=== PATIENT | male | born 1945 | race Caucasian/White ===

== ENCOUNTER 2022-01-13 16:47 | Inpatient (IN) ==
[2022-01-13] MEDS ORDERED: Dextrose Gel 15 GM/37.5 ML TUBE PO PRN ×2 (17:04)
[2022-01-13] MEDS ORDERED: *HR* Dextrose 50 % in Water (Syg) 50 ML SYRINGE IVP PRN (17:04)
[2022-01-13] MEDS ORDERED: D5% in Water 1,000 ML IVC PRN (17:04)
[2022-01-13] MEDS ORDERED: Warfarin perPT PO PRN (18:00)
[2022-01-14] MEDS: Insulin LISPRO 300 UNITS/3 ML VIAL SUBQ SCH ×5 (03:47→20:37)
[2022-01-14 07:56] LABS: Basophils % 0.5 %; Eosinophils # 0.3 K/mcL (0.0-0.6); Eosinophils % 4.6 %; Hematocrit 24.3 % (37.5-50.1); Hemoglobin 7.8 g/dL (12.9-16.9); Immature Granulocytes % 0.4 % (0-4); Lymphocytes # 0.6 K/mcL (0.6-4.6); Mean Corpuscular HGB Conc 32.1 g/dL (31.6-35.5); Mean Corpuscular Hemoglobin 29.3 pg (28.0-33.3); Mean Corpuscular Volume 91.4 fL (83.0-100.0); Monocytes # 0.5 K/mcL (0.0-1.3); Monocytes % 8.4 %; Neutrophils # 4.2 K/mcL (1.6-8.9); Platelet Count 151 K/mcL (140-400); Red Blood Count 2.66 M/mcL (4.19-5.50); Red Cell Distribution Width 19.1 % (11.5-14.5); Segmented Neutrophils % 76.1 %; White Blood Count 5.5 K/mcL (4.3-11.1)
[2022-01-14 08:17] LABS: Calcium 9.7 mg/dL (8.6-10.3); Potassium 3.6 mEq/L (3.5-5.1)
[2022-01-14] MEDS ORDERED: NON-FORMULARY MEDICATION 1 EACH EACH (Vit C/E/Zn/Coppr/Lutein/Zeaxan [Preservision Areds 2 PO SCH (09:00)
[2022-01-14] MEDS ORDERED: Furosemide 40 MG TABLET PO SCH (09:00)
[2022-01-14] MEDS: Cyanocobalamin (B-12) 1,000 MCG TABLET PO SCH (09:14)
[2022-01-14] MEDS: carvediloL 25 MG TABLET PO SCH ×2 (09:14→17:16)
[2022-01-14] MEDS: Aspirin Enteric Coated 81 MG Tablet PO SCH (09:14)
[2022-01-14] MEDS: Isosorbide MONOnitrate (24 HR) 30 MG TAB.ER.24H PO SCH (09:15)
[2022-01-14] MEDS: amLODIPine 5 MG TABLET PO SCH (09:15)
[2022-01-14] MEDS: Multivit/Ca/Min/Fe/FA 1 TAB TABLET PO SCH (09:16)
[2022-01-14 13:40] LABS: INR 2.7; Prothrombin Time 29.4 Seconds (9.4-12.1)
[2022-01-14] MEDS ORDERED: *HR* Warfarin 2 MG TABLET PO ONE (18:00)
[2022-01-14] MEDS: PARoxetine 10 MG TABLET PO SCH (20:37)
[2022-01-15] MEDS: Furosemide 40 MG TABLET PO SCH ×3 (00:30→17:27)
[2022-01-15 08:29] LABS: Calcium 9.4 mg/dL (8.6-10.3); Potassium 3.5 mEq/L (3.5-5.1)
[2022-01-15] MEDS: Insulin LISPRO 300 UNITS/3 ML VIAL SUBQ SCH ×4 (08:52→21:07)
[2022-01-15] MEDS: Aspirin Enteric Coated 81 MG Tablet PO SCH (08:54)
[2022-01-15] MEDS: Isosorbide MONOnitrate (24 HR) 30 MG TAB.ER.24H PO SCH (08:54)
[2022-01-15] MEDS: amLODIPine 5 MG TABLET PO SCH (08:55)
[2022-01-15] MEDS: cephALEXin 500 MG CAPSULE PO SCH ×2 (08:55→21:11)
[2022-01-15] MEDS: Multivit/Ca/Min/Fe/FA 1 TAB TABLET PO SCH (08:55)
[2022-01-15] MEDS: Cyanocobalamin (B-12) 1,000 MCG TABLET PO SCH (08:55)
[2022-01-15] MEDS: carvediloL 25 MG TABLET PO SCH ×2 (08:56→17:28)
[2022-01-15] MEDS ORDERED: cephALEXin 500 MG CAPSULE PO SCH (09:00)
[2022-01-15 09:54] LABS: INR 2.4; Prothrombin Time 26.6 Seconds (9.4-12.1)
[2022-01-15] MEDS: *HR* Warfarin 3 MG TABLET PO ONE (17:28)
[2022-01-15] MEDS: PARoxetine 10 MG TABLET PO SCH (21:11)
[2022-01-16] MEDS: Insulin LISPRO 300 UNITS/3 ML VIAL SUBQ SCH ×4 (08:48→21:00)
[2022-01-16] MEDS: Aspirin Enteric Coated 81 MG Tablet PO SCH (09:00)
[2022-01-16] MEDS: amLODIPine 5 MG TABLET PO SCH (09:00)
[2022-01-16] MEDS: cephALEXin 500 MG CAPSULE PO SCH ×2 (09:01→21:52)
[2022-01-16] MEDS: Cyanocobalamin (B-12) 1,000 MCG TABLET PO SCH (09:01)
[2022-01-16] MEDS: Multivit/Ca/Min/Fe/FA 1 TAB TABLET PO SCH (09:01)
[2022-01-16] MEDS: carvediloL 25 MG TABLET PO SCH ×2 (09:02→17:20)
[2022-01-16] MEDS: Isosorbide MONOnitrate (24 HR) 30 MG TAB.ER.24H PO SCH (09:02)
[2022-01-16] MEDS: Furosemide 40 MG TABLET PO SCH ×2 (09:02→17:21)
[2022-01-16 09:20] LABS: INR 2.2
[2022-01-16] MEDS ORDERED: *HR* Warfarin 0.5 MG TABLET PO ONE (18:00)
[2022-01-16] MEDS ORDERED: *HR* Warfarin 3 MG TABLET PO ONE (18:00)
[2022-01-16] MEDS: PARoxetine 10 MG TABLET PO SCH (21:53)
[2022-01-16] MEDS: *HR* Warfarin 3 MG TABLET PO ONE (21:55)
[2022-01-17 07:15] LABS: INR 2.1; Prothrombin Time 23.7 Seconds (9.4-12.1)
[2022-01-17] MEDS: Insulin LISPRO 300 UNITS/3 ML VIAL SUBQ SCH ×4 (08:33→20:35)
[2022-01-17] MEDS: cephALEXin 500 MG CAPSULE PO SCH ×2 (08:47→20:24)
[2022-01-17] MEDS: carvediloL 25 MG TABLET PO SCH ×2 (08:47→17:08)
[2022-01-17] MEDS: Multivit/Ca/Min/Fe/FA 1 TAB TABLET PO SCH (08:47)
[2022-01-17] MEDS: Isosorbide MONOnitrate (24 HR) 30 MG TAB.ER.24H PO SCH (08:47)
[2022-01-17] MEDS: Furosemide 40 MG TABLET PO SCH ×2 (08:47→17:08)
[2022-01-17] MEDS: amLODIPine 5 MG TABLET PO SCH (08:47)
[2022-01-17] MEDS: Cyanocobalamin (B-12) 1,000 MCG TABLET PO SCH (08:47)
[2022-01-17] MEDS: Aspirin Enteric Coated 81 MG Tablet PO SCH (08:48)
[2022-01-17] MEDS ORDERED: *HR* Warfarin 2 MG TABLET PO ONE (18:00)
[2022-01-17] MEDS: PARoxetine 10 MG TABLET PO SCH (20:24)
[2022-01-18 07:10] LABS: Basophils # 0.1 K/mcL (0.0-0.2); Basophils % 1.1 %; Eosinophils # 0.3 K/mcL (0.0-0.6); Eosinophils % 6.1 %; Hemoglobin 7.1 g/dL (12.9-16.9); Immature Granulocytes % 0.2 % (0-4); Lymphocytes # 0.6 K/mcL (0.6-4.6); Lymphocytes % 13.3 %; Mean Corpuscular HGB Conc 32.3 g/dL (31.6-35.5); Mean Corpuscular Volume 92.8 fL (83.0-100.0); Mean Platelet Volume 11.8 fL (9.4-12.4); Monocytes # 0.5 K/mcL (0.0-1.3); Neutrophils # 3.3 K/mcL (1.6-8.9); Platelet Count 151 K/mcL (140-400); Red Blood Count 2.37 M/mcL (4.19-5.50); Red Cell Distribution Width 19.7 % (11.5-14.5); Segmented Neutrophils % 69.3 %; White Blood Count 4.7 K/mcL (4.3-11.1)
[2022-01-18 07:28] LABS: Calcium 9.1 mg/dL (8.6-10.3); Potassium 3.8 mEq/L (3.5-5.1)
[2022-01-18 07:48] LABS: INR 2.2; Prothrombin Time 23.9 Seconds (9.4-12.1)
[2022-01-18] MEDS: Aspirin Enteric Coated 81 MG Tablet PO SCH (08:20)
[2022-01-18] MEDS: Isosorbide MONOnitrate (24 HR) 30 MG TAB.ER.24H PO SCH (08:20)
[2022-01-18] MEDS: Cyanocobalamin (B-12) 1,000 MCG TABLET PO SCH (08:20)
[2022-01-18] MEDS: Multivit/Ca/Min/Fe/FA 1 TAB TABLET PO SCH (08:20)
[2022-01-18] MEDS: carvediloL 25 MG TABLET PO SCH ×2 (08:21→16:32)
[2022-01-18] MEDS: cephALEXin 500 MG CAPSULE PO SCH ×2 (08:21→20:10)
[2022-01-18] MEDS: amLODIPine 5 MG TABLET PO SCH (08:21)
[2022-01-18] MEDS: Insulin LISPRO 300 UNITS/3 ML VIAL SUBQ SCH ×4 (08:27→22:45)
[2022-01-18] MEDS ORDERED: 0.9 % Sodium Chloride 250 ML IVC SCH (08:30)
[2022-01-18] MEDS ORDERED: Furosemide 40 MG TABLET PO SCH (09:00)
[2022-01-18 15:47] LABS: Hematocrit 25.2 % (37.5-50.1); Hemoglobin 8.1 g/dL (12.9-16.9); Mean Corpuscular HGB Conc 32.1 g/dL (31.6-35.5); Mean Corpuscular Hemoglobin 29.8 pg (28.0-33.3); Mean Corpuscular Volume 92.6 fL (83.0-100.0); Mean Platelet Volume 11.1 fL (9.4-12.4); Platelet Count 146 K/mcL (140-400); Red Blood Count 2.72 M/mcL (4.19-5.50); Red Cell Distribution Width 19.4 % (11.5-14.5); White Blood Count 4.1 K/mcL (4.3-11.1)
[2022-01-18 16:05] LABS: Calcium 9.1 mg/dL (8.6-10.3); Potassium 3.7 mEq/L (3.5-5.1)
[2022-01-18] MEDS: PARoxetine 10 MG TABLET PO SCH (20:10)
[2022-01-19 08:33] LABS: Basophils % 0.7 %; Eosinophils # 0.2 K/mcL (0.0-0.6); Eosinophils % 5.9 %; Hematocrit 27.2 % (37.5-50.1); Hemoglobin 8.6 g/dL (12.9-16.9); Immature Granulocytes % 0.2 % (0-4); Lymphocytes # 0.6 K/mcL (0.6-4.6); Lymphocytes % 15.3 %; Mean Corpuscular HGB Conc 31.6 g/dL (31.6-35.5); Mean Corpuscular Hemoglobin 29.3 pg (28.0-33.3); Mean Corpuscular Volume 92.5 fL (83.0-100.0); Monocytes # 0.5 K/mcL (0.0-1.3); Monocytes % 12.3 %; Neutrophils # 2.7 K/mcL (1.6-8.9); Platelet Count 150 K/mcL (140-400); Red Blood Count 2.94 M/mcL (4.19-5.50); Red Cell Distribution Width 19.4 % (11.5-14.5); Segmented Neutrophils % 65.6 %; White Blood Count 4.1 K/mcL (4.3-11.1)
[2022-01-19] MEDS: Insulin LISPRO 300 UNITS/3 ML VIAL SUBQ SCH ×4 (08:35→20:28)
[2022-01-19] MEDS: Isosorbide MONOnitrate (24 HR) 30 MG TAB.ER.24H PO SCH (08:38)
[2022-01-19] MEDS: carvediloL 25 MG TABLET PO SCH ×2 (08:38→16:43)
[2022-01-19] MEDS: Multivit/Ca/Min/Fe/FA 1 TAB TABLET PO SCH (08:38)
[2022-01-19] MEDS: cephALEXin 500 MG CAPSULE PO SCH ×2 (08:38→20:28)
[2022-01-19] MEDS: Aspirin Enteric Coated 81 MG Tablet PO SCH (08:38)
[2022-01-19] MEDS: amLODIPine 5 MG TABLET PO SCH (08:38)
[2022-01-19] MEDS: Cyanocobalamin (B-12) 1,000 MCG TABLET PO SCH (08:38)
[2022-01-19 09:01] LABS: Calcium 9.3 mg/dL (8.6-10.3); Potassium 3.5 mEq/L (3.5-5.1)
[2022-01-19 10:08] LABS: INR 2.4; Prothrombin Time 26.4 Seconds (9.4-12.1)
[2022-01-19] MEDS ORDERED: Acetaminophen 325 MG TABLET PO PRN (10:45)
[2022-01-19 15:03] LABS: Basophils % 0.9 %; Eosinophils # 0.2 K/mcL (0.0-0.6); Eosinophils % 5.6 %; Hematocrit 24.3 % (37.5-50.1); Hemoglobin 7.7 g/dL (12.9-16.9); Immature Granulocytes % 0.2 % (0-4); Lymphocytes # 0.5 K/mcL (0.6-4.6); Lymphocytes % 10.9 %; Mean Corpuscular HGB Conc 31.7 g/dL (31.6-35.5); Mean Corpuscular Hemoglobin 29.3 pg (28.0-33.3); Mean Corpuscular Volume 92.4 fL (83.0-100.0); Monocytes # 0.5 K/mcL (0.0-1.3); Monocytes % 12.5 %; Platelet Count 146 K/mcL (140-400); Red Blood Count 2.63 M/mcL (4.19-5.50); Red Cell Distribution Width 19.3 % (11.5-14.5); Segmented Neutrophils % 69.9 %; White Blood Count 4.3 K/mcL (4.3-11.1)
[2022-01-19 15:27] LABS: Calcium 8.9 mg/dL (8.6-10.3); Potassium 3.6 mEq/L (3.5-5.1)
[2022-01-19] MEDS: PARoxetine 10 MG TABLET PO SCH (20:28)
[2022-01-19 21:39] VITALS: RESP 16
[2022-01-19 23:40] VITALS: BP 120/73; PULSE 63; TEMP 98.5; O2SAT 96
== END 2022-01-20 00:22 | disposition short-term general hospital (02) ==
LOC: INPPIK 01-14 01:26
PROVIDERS: ADMIT Family Medicine; ATTEND Family Medicine

== ENCOUNTER 2022-01-27 11:53 | Inpatient (IN) ==
[2022-02-01] MEDS ORDERED: *HR* Dextrose 50 % in Water (Syg) 50 ML SYRINGE IVP PRN (14:43)
[2022-02-01] MEDS ORDERED: Dextrose 4 GM Chewable Tablets PO PRN ×2 (14:43)
[2022-02-01] MEDS ORDERED: Warfarin perPT PO PRN (18:00)
[2022-02-01] MEDS ORDERED: D5% in Water 1,000 ML IVC PRN (21:42)
[2022-02-01] MEDS ORDERED: Ondansetron ODT 4 MG TAB.RAPDIS SL PRN (21:42)
[2022-02-01] MEDS ORDERED: Acetaminophen 325 MG TABLET PO PRN (21:43)
[2022-02-01] MEDS: Insulin LISPRO 300 UNITS/3 ML VIAL SUBQ SCH ×2 (21:44→22:34)
[2022-02-01] MEDS: hydrALAZINE 25 MG TABLET PO SCH (23:36)
[2022-02-01] MEDS: PARoxetine 10 MG TABLET PO SCH (23:36)
[2022-02-01] MEDS: Melatonin 3 MG TABLET PO PRN (23:36)
[2022-02-02] MEDS: hydrALAZINE 25 MG TABLET PO SCH ×3 (05:52→21:27)
[2022-02-02 06:29] LABS: Basophils % 0.8 %; Eosinophils # 0.2 K/mcL (0.0-0.6); Eosinophils % 5.8 %; Hematocrit 26.7 % (37.5-50.1); Hemoglobin 8.2 g/dL (12.9-16.9); Immature Granulocytes % 0.3 % (0-4); Lymphocytes # 0.6 K/mcL (0.6-4.6); Lymphocytes % 16.2 %; Mean Corpuscular HGB Conc 30.7 g/dL (31.6-35.5); Mean Corpuscular Hemoglobin 28.6 pg (28.0-33.3); Mean Platelet Volume 11.2 fL (9.4-12.4); Monocytes # 0.5 K/mcL (0.0-1.3); Monocytes % 12.8 %; Platelet Count 145 K/mcL (140-400); Red Blood Count 2.87 M/mcL (4.19-5.50); Red Cell Distribution Width 17.6 % (11.5-14.5); Segmented Neutrophils % 64.1 %; White Blood Count 3.8 K/mcL (4.3-11.1)
[2022-02-02 06:41] LABS: Neutrophils # 2.4 K/mcL (1.6-8.9)
[2022-02-02 06:44] LABS: INR 1.7; Prothrombin Time 18.9 Seconds (9.4-12.1)
[2022-02-02 06:52] LABS: Calcium 9.5 mg/dL (8.6-10.3); Potassium 3.8 mEq/L (3.5-5.1)
[2022-02-02] MEDS: Insulin LISPRO 300 UNITS/3 ML VIAL SUBQ SCH ×4 (08:13→21:28)
[2022-02-02] MEDS: Aspirin Enteric Coated 81 MG Tablet PO SCH (10:55)
[2022-02-02] MEDS: carvediloL 25 MG TABLET PO SCH ×2 (10:55→16:46)
[2022-02-02] MEDS: Multivit/Ca/Min/Fe/FA 1 TAB TABLET PO SCH (10:55)
[2022-02-02] MEDS: (Preservision Areds 2) PO SCH (10:55)
[2022-02-02] MEDS: Furosemide 40 MG TABLET PO SCH (10:55)
[2022-02-02] MEDS: Cyanocobalamin (B-12) 1,000 MCG TABLET PO SCH (10:55)
[2022-02-02] MEDS: Isosorbide MONOnitrate (24 HR) 30 MG TAB.ER.24H PO SCH (10:55)
[2022-02-02] MEDS: Magnesium Oxide 400 MG TABLET PO SCH (10:55)
[2022-02-02] MEDS ORDERED: *HR* Warfarin 2 MG TABLET PO ONE (18:00)
[2022-02-02] MEDS: PARoxetine 10 MG TABLET PO SCH (21:28)
[2022-02-03] MEDS: hydrALAZINE 25 MG TABLET PO SCH ×3 (05:00→21:32)
[2022-02-03 06:26] LABS: INR 1.7; Prothrombin Time 18.7 Seconds (9.4-12.1)
[2022-02-03] MEDS: Insulin LISPRO 300 UNITS/3 ML VIAL SUBQ SCH ×4 (09:40→21:25)
[2022-02-03] MEDS: Isosorbide MONOnitrate (24 HR) 30 MG TAB.ER.24H PO SCH (11:16)
[2022-02-03] MEDS: Magnesium Oxide 400 MG TABLET PO SCH (11:16)
[2022-02-03] MEDS: carvediloL 25 MG TABLET PO SCH ×2 (11:16→17:23)
[2022-02-03] MEDS: Furosemide 40 MG TABLET PO SCH (11:16)
[2022-02-03] MEDS: Cyanocobalamin (B-12) 1,000 MCG TABLET PO SCH (11:16)
[2022-02-03] MEDS: (Preservision Areds 2) PO SCH (11:17)
[2022-02-03] MEDS: Multivit/Ca/Min/Fe/FA 1 TAB TABLET PO SCH (11:17)
[2022-02-03] MEDS: Aspirin Enteric Coated 81 MG Tablet PO SCH (11:17)
[2022-02-03] MEDS ORDERED: *HR* Warfarin 2 MG TABLET PO ONE (18:00)
[2022-02-03] MEDS: PARoxetine 10 MG TABLET PO SCH (21:32)
[2022-02-03] MEDS: Melatonin 3 MG TABLET PO PRN (21:32)
[2022-02-04] MEDS: hydrALAZINE 25 MG TABLET PO SCH ×3 (04:49→20:57)
[2022-02-04] MEDS: Insulin LISPRO 300 UNITS/3 ML VIAL SUBQ SCH ×4 (07:30→20:44)
[2022-02-04] MEDS: (Preservision Areds 2) PO SCH (10:49)
[2022-02-04] MEDS: carvediloL 25 MG TABLET PO SCH ×2 (11:06→17:20)
[2022-02-04] MEDS: Aspirin Enteric Coated 81 MG Tablet PO SCH (11:06)
[2022-02-04] MEDS: Magnesium Oxide 400 MG TABLET PO SCH (11:07)
[2022-02-04] MEDS: Cyanocobalamin (B-12) 1,000 MCG TABLET PO SCH (11:07)
[2022-02-04] MEDS: Isosorbide MONOnitrate (24 HR) 30 MG TAB.ER.24H PO SCH (11:07)
[2022-02-04] MEDS: Furosemide 40 MG TABLET PO SCH (11:07)
[2022-02-04] MEDS: Multivit/Ca/Min/Fe/FA 1 TAB TABLET PO SCH (11:07)
[2022-02-04 11:37] LABS: INR 1.7; Prothrombin Time 18.5 Seconds (9.4-12.1)
[2022-02-04] MEDS ORDERED: *HR* Warfarin 2 MG TABLET PO ONE (18:00)
[2022-02-04] MEDS ORDERED: *HR* Warfarin 2.5 MG TABLET PO ONE (18:00)
[2022-02-04] MEDS: Melatonin 3 MG TABLET PO PRN (20:57)
[2022-02-04] MEDS: PARoxetine 10 MG TABLET PO SCH (20:57)
[2022-02-05] MEDS: hydrALAZINE 25 MG TABLET PO SCH ×4 (07:31→23:56)
[2022-02-05] MEDS: Insulin LISPRO 300 UNITS/3 ML VIAL SUBQ SCH ×4 (08:08→20:05)
[2022-02-05 08:27] LABS: INR 1.8; Prothrombin Time 19.7 Seconds (9.4-12.1)
[2022-02-05] MEDS: Furosemide 40 MG TABLET PO SCH (10:17)
[2022-02-05] MEDS: carvediloL 25 MG TABLET PO SCH ×2 (10:18→17:05)
[2022-02-05] MEDS: Multivit/Ca/Min/Fe/FA 1 TAB TABLET PO SCH (10:18)
[2022-02-05] MEDS: Cyanocobalamin (B-12) 1,000 MCG TABLET PO SCH (10:18)
[2022-02-05] MEDS: Magnesium Oxide 400 MG TABLET PO SCH (10:18)
[2022-02-05] MEDS: Aspirin Enteric Coated 81 MG Tablet PO SCH (10:18)
[2022-02-05] MEDS: Isosorbide MONOnitrate (24 HR) 30 MG TAB.ER.24H PO SCH (10:18)
[2022-02-05] MEDS: (Preservision Areds 2) PO SCH (10:19)
[2022-02-05] MEDS ORDERED: *HR* Warfarin 2.5 MG TABLET PO ONE (18:00)
[2022-02-05] MEDS ORDERED: *HR* Warfarin 2 MG TABLET PO ONE (18:00)
[2022-02-05] MEDS: PARoxetine 10 MG TABLET PO SCH (20:05)
[2022-02-05] MEDS: Melatonin 3 MG TABLET PO PRN (20:05)
[2022-02-06 08:02] LABS: Prothrombin Time 22.2 Seconds (9.4-12.1)
[2022-02-06] MEDS: Insulin LISPRO 300 UNITS/3 ML VIAL SUBQ SCH ×4 (08:17→19:50)
[2022-02-06] MEDS: hydrALAZINE 25 MG TABLET PO SCH ×3 (08:18→23:12)
[2022-02-06] MEDS: Cyanocobalamin (B-12) 1,000 MCG TABLET PO SCH (08:18)
[2022-02-06] MEDS: Aspirin Enteric Coated 81 MG Tablet PO SCH (08:18)
[2022-02-06] MEDS: Magnesium Oxide 400 MG TABLET PO SCH (08:18)
[2022-02-06] MEDS: Furosemide 40 MG TABLET PO SCH (08:18)
[2022-02-06] MEDS: Multivit/Ca/Min/Fe/FA 1 TAB TABLET PO SCH (08:18)
[2022-02-06] MEDS: Isosorbide MONOnitrate (24 HR) 30 MG TAB.ER.24H PO SCH (08:18)
[2022-02-06] MEDS: carvediloL 25 MG TABLET PO SCH ×2 (08:18→17:16)
[2022-02-06] MEDS: (Preservision Areds 2) PO SCH (08:20)
[2022-02-06 08:52] LABS: Hematocrit 25.1 % (37.5-50.1); Hemoglobin 7.7 g/dL (12.9-16.9); Mean Corpuscular HGB Conc 30.7 g/dL (31.6-35.5); Mean Corpuscular Hemoglobin 28.2 pg (28.0-33.3); Mean Corpuscular Volume 91.9 fL (83.0-100.0); Mean Platelet Volume 11.5 fL (9.4-12.4); Platelet Count 138 K/mcL (140-400); Red Blood Count 2.73 M/mcL (4.19-5.50); Red Cell Distribution Width 16.8 % (11.5-14.5); White Blood Count 5.3 K/mcL (4.3-11.1)
[2022-02-06] MEDS ORDERED: *HR* Warfarin 2 MG TABLET PO ONE (18:00)
[2022-02-06] MEDS: PARoxetine 10 MG TABLET PO SCH (19:54)
[2022-02-06] MEDS: Melatonin 3 MG TABLET PO PRN (23:12)
[2022-02-07] MEDS: Insulin LISPRO 300 UNITS/3 ML VIAL SUBQ SCH ×4 (10:18→20:12)
[2022-02-07] MEDS: hydrALAZINE 25 MG TABLET PO SCH ×2 (12:44→17:19)
[2022-02-07] MEDS: carvediloL 25 MG TABLET PO SCH ×2 (12:45→17:20)
[2022-02-07] MEDS: (Preservision Areds 2) PO SCH (12:58)
[2022-02-07] MEDS: Magnesium Oxide 400 MG TABLET PO SCH (13:01)
[2022-02-07] MEDS: Furosemide 40 MG TABLET PO SCH (13:01)
[2022-02-07] MEDS: Aspirin Enteric Coated 81 MG Tablet PO SCH (13:01)
[2022-02-07] MEDS: Multivit/Ca/Min/Fe/FA 1 TAB TABLET PO SCH (13:01)
[2022-02-07] MEDS: Isosorbide MONOnitrate (24 HR) 30 MG TAB.ER.24H PO SCH (13:01)
[2022-02-07] MEDS: Cyanocobalamin (B-12) 1,000 MCG TABLET PO SCH (13:02)
[2022-02-07 13:12] LABS: INR 2.2; Prothrombin Time 24.5 Seconds (9.4-12.1)
[2022-02-07] MEDS ORDERED: *HR* Warfarin 2 MG TABLET PO ONE (18:00)
[2022-02-07] MEDS: Melatonin 3 MG TABLET PO PRN (20:12)
[2022-02-07] MEDS: PARoxetine 10 MG TABLET PO SCH (20:12)
[2022-02-08] MEDS: hydrALAZINE 25 MG TABLET PO SCH ×3 (00:53→17:12)
[2022-02-08] MEDS: Insulin LISPRO 300 UNITS/3 ML VIAL SUBQ SCH ×4 (07:23→21:10)
[2022-02-08 07:56] LABS: INR 2.2; Prothrombin Time 24.1 Seconds (9.4-12.1)
[2022-02-08 08:07] LABS: Hematocrit 24.1 % (37.5-50.1); Hemoglobin 7.5 g/dL (12.9-16.9); Mean Corpuscular HGB Conc 31.1 g/dL (31.6-35.5); Mean Corpuscular Hemoglobin 28.7 pg (28.0-33.3); Mean Corpuscular Volume 92.3 fL (83.0-100.0); Mean Platelet Volume 11.5 fL (9.4-12.4); Platelet Count 156 K/mcL (140-400); Red Blood Count 2.61 M/mcL (4.19-5.50); Red Cell Distribution Width 16.8 % (11.5-14.5); White Blood Count 4.9 K/mcL (4.3-11.1)
[2022-02-08 08:21] LABS: Calcium 9.1 mg/dL (8.6-10.3); Potassium 4.5 mEq/L (3.5-5.1)
[2022-02-08] MEDS: Isosorbide MONOnitrate (24 HR) 30 MG TAB.ER.24H PO SCH (09:01)
[2022-02-08] MEDS: Multivit/Ca/Min/Fe/FA 1 TAB TABLET PO SCH (09:01)
[2022-02-08] MEDS: Magnesium Oxide 400 MG TABLET PO SCH (09:03)
[2022-02-08] MEDS: Aspirin Enteric Coated 81 MG Tablet PO SCH (09:03)
[2022-02-08] MEDS: Furosemide 40 MG TABLET PO SCH (09:03)
[2022-02-08] MEDS: carvediloL 25 MG TABLET PO SCH ×2 (09:03→17:12)
[2022-02-08] MEDS: Cyanocobalamin (B-12) 1,000 MCG TABLET PO SCH (09:04)
[2022-02-08] MEDS: (Preservision Areds 2) PO SCH (09:05)
[2022-02-08] MEDS ORDERED: *HR* Warfarin 2 MG TABLET PO ONE (18:00)
[2022-02-08] MEDS: Melatonin 3 MG TABLET PO PRN (21:09)
[2022-02-08] MEDS: PARoxetine 10 MG TABLET PO SCH (21:09)
[2022-02-09] MEDS: hydrALAZINE 25 MG TABLET PO SCH ×3 (01:24→17:01)
[2022-02-09] MEDS: Insulin LISPRO 300 UNITS/3 ML VIAL SUBQ SCH ×4 (10:15→19:39)
[2022-02-09 11:38] LABS: INR 2.1; Prothrombin Time 23.6 Seconds (9.4-12.1)
[2022-02-09] MEDS: carvediloL 25 MG TABLET PO SCH ×2 (11:40→17:01)
[2022-02-09] MEDS: Isosorbide MONOnitrate (24 HR) 30 MG TAB.ER.24H PO SCH (11:41)
[2022-02-09] MEDS: Multivit/Ca/Min/Fe/FA 1 TAB TABLET PO SCH (11:41)
[2022-02-09] MEDS: Magnesium Oxide 400 MG TABLET PO SCH (11:41)
[2022-02-09] MEDS: (Preservision Areds 2) PO SCH (11:41)
[2022-02-09] MEDS: Cyanocobalamin (B-12) 1,000 MCG TABLET PO SCH (11:41)
[2022-02-09] MEDS: Furosemide 40 MG TABLET PO SCH (11:42)
[2022-02-09] MEDS: Aspirin Enteric Coated 81 MG Tablet PO SCH (11:42)
[2022-02-09] MEDS: Ergocalciferol (VIT D2) 50,000 UNIT (1.25MG) CAP PO SCH (14:53)
[2022-02-09] MEDS ORDERED: *HR* Warfarin 2 MG TABLET PO ONE (18:00)
[2022-02-09] MEDS: Melatonin 3 MG TABLET PO PRN (19:39)
[2022-02-09] MEDS: PARoxetine 10 MG TABLET PO SCH (19:39)
[2022-02-10] MEDS: hydrALAZINE 25 MG TABLET PO SCH ×4 (01:45→23:39)
[2022-02-10 06:30] LABS: INR 2.3; Prothrombin Time 25.6 Seconds (9.4-12.1)
[2022-02-10] MEDS: Insulin LISPRO 300 UNITS/3 ML VIAL SUBQ SCH ×4 (08:57→19:34)
[2022-02-10] MEDS: Multivit/Ca/Min/Fe/FA 1 TAB TABLET PO SCH (09:02)
[2022-02-10] MEDS: Furosemide 40 MG TABLET PO SCH (09:02)
[2022-02-10] MEDS: Magnesium Oxide 400 MG TABLET PO SCH (09:03)
[2022-02-10] MEDS: Isosorbide MONOnitrate (24 HR) 30 MG TAB.ER.24H PO SCH (09:03)
[2022-02-10] MEDS: carvediloL 25 MG TABLET PO SCH ×2 (09:03→16:40)
[2022-02-10] MEDS: Aspirin Enteric Coated 81 MG Tablet PO SCH (09:03)
[2022-02-10] MEDS: (Preservision Areds 2) PO SCH (09:04)
[2022-02-10] MEDS: Cyanocobalamin (B-12) 1,000 MCG TABLET PO SCH (09:04)
[2022-02-10] MEDS ORDERED: *HR* Warfarin 2 MG TABLET PO ONE (18:00)
[2022-02-10] MEDS: PARoxetine 10 MG TABLET PO SCH (19:34)
[2022-02-10] MEDS: Melatonin 3 MG TABLET PO PRN (23:39)
[2022-02-11] MEDS: Insulin LISPRO 300 UNITS/3 ML VIAL SUBQ SCH ×4 (10:29→20:55)
[2022-02-11] MEDS: Isosorbide MONOnitrate (24 HR) 30 MG TAB.ER.24H PO SCH (10:42)
[2022-02-11] MEDS: hydrALAZINE 25 MG TABLET PO SCH ×2 (10:42→17:47)
[2022-02-11] MEDS: Multivit/Ca/Min/Fe/FA 1 TAB TABLET PO SCH (10:42)
[2022-02-11] MEDS: carvediloL 25 MG TABLET PO SCH ×2 (10:43→17:53)
[2022-02-11] MEDS: Furosemide 40 MG TABLET PO SCH (10:43)
[2022-02-11] MEDS: Cyanocobalamin (B-12) 1,000 MCG TABLET PO SCH (10:43)
[2022-02-11] MEDS: Magnesium Oxide 400 MG TABLET PO SCH (10:43)
[2022-02-11] MEDS: (Preservision Areds 2) PO SCH (10:44)
[2022-02-11] MEDS: Aspirin Enteric Coated 81 MG Tablet PO SCH (10:44)
[2022-02-11 11:30] LABS: INR 2.2; Prothrombin Time 24.9 Seconds (9.4-12.1)
[2022-02-11] MEDS ORDERED: *HR* Warfarin 2 MG TABLET PO ONE (18:00)
[2022-02-11] MEDS: PARoxetine 10 MG TABLET PO SCH (20:47)
[2022-02-11] MEDS: Melatonin 3 MG TABLET PO PRN (20:50)
[2022-02-12] MEDS: hydrALAZINE 25 MG TABLET PO SCH ×3 (00:20→17:06)
[2022-02-12 07:22] LABS: INR 2.6; Prothrombin Time 28.4 Seconds (9.4-12.1)
[2022-02-12] MEDS: Insulin LISPRO 300 UNITS/3 ML VIAL SUBQ SCH ×4 (07:31→20:14)
[2022-02-12] MEDS: carvediloL 25 MG TABLET PO SCH ×2 (07:32→17:05)
[2022-02-12] MEDS: Isosorbide MONOnitrate (24 HR) 30 MG TAB.ER.24H PO SCH (07:32)
[2022-02-12] MEDS: Aspirin Enteric Coated 81 MG Tablet PO SCH (07:32)
[2022-02-12] MEDS: Multivit/Ca/Min/Fe/FA 1 TAB TABLET PO SCH (07:32)
[2022-02-12] MEDS: Furosemide 40 MG TABLET PO SCH (07:32)
[2022-02-12] MEDS: Magnesium Oxide 400 MG TABLET PO SCH (07:32)
[2022-02-12] MEDS: Cyanocobalamin (B-12) 1,000 MCG TABLET PO SCH (07:32)
[2022-02-12] MEDS: (Preservision Areds 2) PO SCH (10:13)
[2022-02-12] MEDS ORDERED: *HR* Warfarin 2 MG TABLET PO ONE (18:00)
[2022-02-12] MEDS: PARoxetine 10 MG TABLET PO SCH (20:13)
[2022-02-12] MEDS: Melatonin 3 MG TABLET PO PRN (20:13)
[2022-02-13] MEDS: hydrALAZINE 25 MG TABLET PO SCH ×4 (00:01→23:55)
[2022-02-13 07:51] LABS: INR 2.4; Prothrombin Time 26.4 Seconds (9.4-12.1)
[2022-02-13 07:52] LABS: Calcium 9.1 mg/dL (8.6-10.3); Hematocrit 23.7 % (37.5-50.1); Hemoglobin 7.4 g/dL (12.9-16.9); Magnesium 1.9 mg/dL (1.6-2.6); Mean Corpuscular HGB Conc 31.2 g/dL (31.6-35.5); Mean Corpuscular Volume 92.9 fL (83.0-100.0); Mean Platelet Volume 11.5 fL (9.4-12.4); Platelet Count 137 K/mcL (140-400); Potassium 4.4 mEq/L (3.5-5.1); Red Blood Count 2.55 M/mcL (4.19-5.50); Red Cell Distribution Width 16.7 % (11.5-14.5); White Blood Count 5.2 K/mcL (4.3-11.1)
[2022-02-13] MEDS: Aspirin Enteric Coated 81 MG Tablet PO SCH (08:41)
[2022-02-13] MEDS: Insulin LISPRO 300 UNITS/3 ML VIAL SUBQ SCH ×4 (08:41→20:07)
[2022-02-13] MEDS: Cyanocobalamin (B-12) 1,000 MCG TABLET PO SCH (08:42)
[2022-02-13] MEDS: Multivit/Ca/Min/Fe/FA 1 TAB TABLET PO SCH (08:43)
[2022-02-13] MEDS: Isosorbide MONOnitrate (24 HR) 30 MG TAB.ER.24H PO SCH (08:43)
[2022-02-13] MEDS: Furosemide 40 MG TABLET PO SCH (08:43)
[2022-02-13] MEDS: Magnesium Oxide 400 MG TABLET PO SCH (08:44)
[2022-02-13] MEDS: carvediloL 25 MG TABLET PO SCH ×2 (08:44→16:52)
[2022-02-13] MEDS: (Preservision Areds 2) PO SCH (08:44)
[2022-02-13] MEDS ORDERED: *HR* Warfarin 2 MG TABLET PO ONE (18:00)
[2022-02-13] MEDS: PARoxetine 10 MG TABLET PO SCH (20:07)
[2022-02-13] MEDS: Melatonin 3 MG TABLET PO PRN (20:07)
[2022-02-14] MEDS: Insulin LISPRO 300 UNITS/3 ML VIAL SUBQ SCH ×4 (09:07→21:46)
[2022-02-14] MEDS: Multivit/Ca/Min/Fe/FA 1 TAB TABLET PO SCH (10:47)
[2022-02-14] MEDS: Aspirin Enteric Coated 81 MG Tablet PO SCH (10:47)
[2022-02-14] MEDS: hydrALAZINE 25 MG TABLET PO SCH ×2 (10:47→16:54)
[2022-02-14] MEDS: Cyanocobalamin (B-12) 1,000 MCG TABLET PO SCH (10:48)
[2022-02-14] MEDS: Isosorbide MONOnitrate (24 HR) 30 MG TAB.ER.24H PO SCH (10:48)
[2022-02-14] MEDS: (Preservision Areds 2) PO SCH (10:48)
[2022-02-14] MEDS: Furosemide 40 MG TABLET PO SCH (10:48)
[2022-02-14] MEDS: carvediloL 25 MG TABLET PO SCH ×2 (10:48→17:02)
[2022-02-14] MEDS: Magnesium Oxide 400 MG TABLET PO SCH (11:06)
[2022-02-14 11:41] LABS: INR 2.2; Prothrombin Time 24.3 Seconds (9.4-12.1)
[2022-02-14] MEDS ORDERED: *HR* Warfarin 2 MG TABLET PO ONE (18:00)
[2022-02-14] MEDS: PARoxetine 10 MG TABLET PO SCH (21:46)
[2022-02-14] MEDS: Melatonin 3 MG TABLET PO PRN (21:46)
[2022-02-15] MEDS: hydrALAZINE 25 MG TABLET PO SCH ×4 (00:49→22:58)
[2022-02-15] MEDS: Insulin LISPRO 300 UNITS/3 ML VIAL SUBQ SCH ×4 (07:31→22:16)
[2022-02-15 07:43] LABS: INR 2.2; Prothrombin Time 24.9 Seconds (9.4-12.1)
[2022-02-15] MEDS: Aspirin Enteric Coated 81 MG Tablet PO SCH (08:35)
[2022-02-15] MEDS: Isosorbide MONOnitrate (24 HR) 30 MG TAB.ER.24H PO SCH (08:36)
[2022-02-15] MEDS: Magnesium Oxide 400 MG TABLET PO SCH (08:36)
[2022-02-15] MEDS: Multivit/Ca/Min/Fe/FA 1 TAB TABLET PO SCH (08:36)
[2022-02-15] MEDS: (Preservision Areds 2) PO SCH (08:36)
[2022-02-15] MEDS: Cyanocobalamin (B-12) 1,000 MCG TABLET PO SCH (08:36)
[2022-02-15] MEDS: Furosemide 40 MG TABLET PO SCH (08:36)
[2022-02-15] MEDS: carvediloL 25 MG TABLET PO SCH ×2 (08:36→17:05)
[2022-02-15] MEDS: *HR* Warfarin 2 MG TABLET PO SCH (17:05)
[2022-02-15] MEDS: PARoxetine 10 MG TABLET PO SCH (22:58)
[2022-02-15] MEDS: Melatonin 3 MG TABLET PO PRN (22:58)
[2022-02-16] MEDS: Insulin LISPRO 300 UNITS/3 ML VIAL SUBQ SCH ×4 (08:28→22:31)
[2022-02-16] MEDS: carvediloL 25 MG TABLET PO SCH ×2 (11:41→16:29)
[2022-02-16] MEDS: hydrALAZINE 25 MG TABLET PO SCH ×2 (11:42→16:24)
[2022-02-16] MEDS: (Preservision Areds 2) PO SCH (11:42)
[2022-02-16] MEDS: Isosorbide MONOnitrate (24 HR) 30 MG TAB.ER.24H PO SCH (11:50)
[2022-02-16] MEDS: Furosemide 40 MG TABLET PO SCH (11:50)
[2022-02-16] MEDS: Cyanocobalamin (B-12) 1,000 MCG TABLET PO SCH (11:50)
[2022-02-16] MEDS: Aspirin Enteric Coated 81 MG Tablet PO SCH (11:50)
[2022-02-16] MEDS: Multivit/Ca/Min/Fe/FA 1 TAB TABLET PO SCH (11:50)
[2022-02-16] MEDS: Magnesium Oxide 400 MG TABLET PO SCH (11:50)
[2022-02-16 12:35] LABS: Hematocrit 28.2 % (37.5-50.1); Hemoglobin 8.8 g/dL (12.9-16.9); Mean Corpuscular HGB Conc 31.2 g/dL (31.6-35.5); Mean Corpuscular Hemoglobin 29.2 pg (28.0-33.3); Mean Corpuscular Volume 93.7 fL (83.0-100.0); Mean Platelet Volume 10.8 fL (9.4-12.4); Platelet Count 155 K/mcL (140-400); Red Blood Count 3.01 M/mcL (4.19-5.50); Red Cell Distribution Width 17.3 % (11.5-14.5); White Blood Count 5.1 K/mcL (4.3-11.1)
[2022-02-16 12:48] LABS: Calcium 9.3 mg/dL (8.6-10.3); Potassium 3.7 mEq/L (3.5-5.1)
[2022-02-16] MEDS: Ergocalciferol (VIT D2) 50,000 UNIT (1.25MG) CAP PO SCH (16:30)
[2022-02-16] MEDS: *HR* Warfarin 2 MG TABLET PO SCH (17:58)
[2022-02-16] MEDS: PARoxetine 10 MG TABLET PO SCH (21:37)
[2022-02-17] MEDS: hydrALAZINE 25 MG TABLET PO SCH ×4 (00:59→23:44)
[2022-02-17] MEDS: Insulin LISPRO 300 UNITS/3 ML VIAL SUBQ SCH ×4 (07:11→20:14)
[2022-02-17] MEDS: Aspirin Enteric Coated 81 MG Tablet PO SCH (07:46)
[2022-02-17] MEDS: Multivit/Ca/Min/Fe/FA 1 TAB TABLET PO SCH (07:46)
[2022-02-17] MEDS: Cyanocobalamin (B-12) 1,000 MCG TABLET PO SCH (07:47)
[2022-02-17] MEDS: Furosemide 40 MG TABLET PO SCH (07:47)
[2022-02-17] MEDS: Magnesium Oxide 400 MG TABLET PO SCH (07:47)
[2022-02-17] MEDS: Isosorbide MONOnitrate (24 HR) 30 MG TAB.ER.24H PO SCH (07:47)
[2022-02-17] MEDS: carvediloL 25 MG TABLET PO SCH ×2 (07:47→17:27)
[2022-02-17] MEDS: (Preservision Areds 2) PO SCH (07:47)
[2022-02-17] MEDS: *HR* Warfarin 2 MG TABLET PO SCH (17:28)
[2022-02-17] MEDS: PARoxetine 10 MG TABLET PO SCH (20:14)
[2022-02-18] MEDS: Insulin LISPRO 300 UNITS/3 ML VIAL SUBQ SCH ×4 (10:29→20:39)
[2022-02-18] MEDS: Multivit/Ca/Min/Fe/FA 1 TAB TABLET PO SCH (11:46)
[2022-02-18] MEDS: Aspirin Enteric Coated 81 MG Tablet PO SCH (11:46)
[2022-02-18] MEDS: Isosorbide MONOnitrate (24 HR) 30 MG TAB.ER.24H PO SCH (11:46)
[2022-02-18] MEDS: Magnesium Oxide 400 MG TABLET PO SCH (11:46)
[2022-02-18] MEDS: Furosemide 40 MG TABLET PO SCH (11:46)
[2022-02-18] MEDS: Cyanocobalamin (B-12) 1,000 MCG TABLET PO SCH (11:46)
[2022-02-18] MEDS: hydrALAZINE 25 MG TABLET PO SCH ×2 (11:47→17:26)
[2022-02-18] MEDS: carvediloL 25 MG TABLET PO SCH ×2 (11:47→17:25)
[2022-02-18] MEDS: (Preservision Areds 2) PO SCH (11:47)
[2022-02-18] MEDS: *HR* Warfarin 2 MG TABLET PO SCH (17:25)
[2022-02-18] MEDS: PARoxetine 10 MG TABLET PO SCH (20:38)
[2022-02-19] MEDS: hydrALAZINE 25 MG TABLET PO SCH ×3 (00:44→17:41)
[2022-02-19] MEDS: Insulin LISPRO 300 UNITS/3 ML VIAL SUBQ SCH ×4 (08:42→20:20)
[2022-02-19] MEDS: Magnesium Oxide 400 MG TABLET PO SCH (08:43)
[2022-02-19] MEDS: carvediloL 25 MG TABLET PO SCH ×2 (08:43→17:41)
[2022-02-19] MEDS: Isosorbide MONOnitrate (24 HR) 30 MG TAB.ER.24H PO SCH (08:43)
[2022-02-19] MEDS: Cyanocobalamin (B-12) 1,000 MCG TABLET PO SCH (08:43)
[2022-02-19] MEDS: Furosemide 40 MG TABLET PO SCH (08:43)
[2022-02-19] MEDS: Multivit/Ca/Min/Fe/FA 1 TAB TABLET PO SCH (08:43)
[2022-02-19] MEDS: Aspirin Enteric Coated 81 MG Tablet PO SCH (08:43)
[2022-02-19] MEDS: (Preservision Areds 2) PO SCH (08:44)
[2022-02-19] MEDS: *HR* Warfarin 2 MG TABLET PO SCH (17:41)
[2022-02-19 18:33] LABS: Bilirubin,Urine Small (Negative); Blood,Urine Trace-intact (Negative); Clarity,Urine Clear (Clear); Color,Urine Yellow (Yellow); Glucose,Urine (UA) Normal (Normal); Ketones,Urine Trace mg/dL (Negative); Leukocyte Esterase,Urine Negative (Negative); Nitrite,Urine Negative (Negative); Protein,Urine >=300 mg/dL (Neg-Trace); Urobilinogen,Urine Normal (Normal)
[2022-02-19 18:38] LABS: RBC,Urine 0-3 per hpf (0-3); Squamous Epithelial Cell,Urine Few per hpf (None-Few)
[2022-02-19 18:39] LABS: Bacteria,Urine Moderate per hpf (None-Few)
[2022-02-19] MEDS: PARoxetine 10 MG TABLET PO SCH (20:20)
[2022-02-20] MEDS: hydrALAZINE 25 MG TABLET PO SCH ×2 (01:24→08:23)
[2022-02-20 07:05] VITALS: PULSE 72; RESP 19; TEMP 98.1; O2SAT 92
[2022-02-20] MEDS: Insulin LISPRO 300 UNITS/3 ML VIAL SUBQ SCH ×2 (07:55→12:23)
[2022-02-20] MEDS: carvediloL 25 MG TABLET PO SCH (08:22)
[2022-02-20] MEDS: Furosemide 40 MG TABLET PO SCH (08:22)
[2022-02-20] MEDS: Aspirin Enteric Coated 81 MG Tablet PO SCH (08:22)
[2022-02-20] MEDS: Magnesium Oxide 400 MG TABLET PO SCH (08:22)
[2022-02-20] MEDS: Multivit/Ca/Min/Fe/FA 1 TAB TABLET PO SCH (08:22)
[2022-02-20] MEDS: Isosorbide MONOnitrate (24 HR) 30 MG TAB.ER.24H PO SCH (08:22)
[2022-02-20] MEDS: Cyanocobalamin (B-12) 1,000 MCG TABLET PO SCH (08:24)
[2022-02-20] MEDS: (Preservision Areds 2) PO SCH (08:24)
[2022-02-20 08:27] VITALS: BP 118/66
== END 2022-02-20 15:08 | disposition home health service (06) | DRG 683 ==
LOC: INPPIK 02-01 21:38
PROVIDERS: ADMIT Internal Medicine; ATTEND Internal Medicine